=== PATIENT | male | born 1990 | race Caucasian/White ===

== ENCOUNTER 2017-04-27 14:24 | Emergency (ER) | payer SELFPAY ==
[~2017-04-27] VITALS: Ht 182.9 cm; Wt 120.2 kg
[~2017-04-27 14:24] MED LIST: NAPR-682 PO
[2017-04-27 14:39] VITALS: BP 141/65
--- NOTE | 2017-04-27 14:39 | PHYS DOC ---
Past Medical History Past Medical History: No Pertinent History, Other Additional Past Medical Histor: chronic back pain Past Surgical History: No Surgical History Alcohol Use: Occasionally Drug Use: None Adult General Chief Complaint Chief Complaint: EARACHE/EAR PAIN HPI HPI Patient is a 26 year old presents to the emergency department with complaints of feeling like his right ear is draining. He states this began 2 days ago. He states this morning he put a Q-tip in and see her note blood on cotton swab. He has no complaints of pain. He states he has had a chronic cough for 1 year which he attributes to his smoking. He reports no other symptoms Review of Systems Review of Systems Constitutional: Denies fever or chills [] Eyes: Denies change in visual acuity, redness, or eye pain [] HENT: Denies nasal congestion or sore throat, right ear fullness [] Respiratory: Cough Cardiovascular: No additional information not addressed in HPI [] GI: Denies abdominal pain, nausea, vomiting, bloody stools or diarrhea [] : Denies dysuria or hematuria [] Musculoskeletal: Denies back pain or joint pain [] Integument: Denies rash or skin lesions [] Neurologic: Denies headache, focal weakness or sensory changes [] Endocrine: Denies polyuria or polydipsia [] Allergies Allergies Allergies Coded Allergies Type Severity Reaction Last Updated Verified Penicillins Allergy Intermediate 04/16/14 No Physical Exam Physical Exam Constitutional: Well developed, well nourished, no acute distress, non-toxic appearance. [] HENT: Normocephalic, atraumatic, I'd external canal with superficial abrasion, no active bleeding. The bilateral tympanic membranes with effusion, clear fluid no erythema., oropharynx moist, no oral exudates, nose normal. [] Neck: Normal range of motion, no tenderness, supple, no stridor. [] Cardiovascular:Heart rate regular rhythm, no murmur [] Lungs & Thorax: Bilateral breath sounds clear to auscultation [] Abdomen: Bowel sounds normal, soft, no tenderness, no masses, no pulsatile masses. [] Skin: Warm, dry, no erythema, no rash. [] Neurologic: Alert and oriented X 3, normal motor function, normal sensory function, no focal deficits noted. [] Psychologic: Affect normal, judgement normal, mood normal. [] EKG EKG [] Radiology/Procedures Radiology/Procedures [] Course & Med Decision Making Course & Med Decision Making Pertinent Labs and Imaging studies reviewed. (See chart for details) [] Dragon Disclaimer Dragon Disclaimer This electronic medical record was generated, in whole or in part, using a voice recognition dictation system. Departure Departure Impression: Primary Impression: Eustachian tube dysfunction Disposition: HOME, SELF-CARE Condition: STABLE Referrals: NO PCP (PCP) [facility] Patient Instructions: Otalgia, Smoking Cessation Additional Instructions: Counter Sudafed as labeled and is indicated for symptom management. Please do not put objects in her ear. Problem Qualifiers Primary Impression: Eustachian tube dysfunction Laterality: right Qualified Codes: H69.81 - Other specified disorders of eustachian tube, right ear RIKKI AVILEZ [employer] MARKETING DIRECTOR Apr 27, 2017 14:39
== END 2017-04-27 14:45 | disposition home or self-care (01) ==
LOC: ER 14:24
DX: H69.81 Other specified disorders of Eustachian tube, right ear (principal); G89.29 Other chronic pain; F17.200 Nicotine dependence, unspecified, uncomplicated; Z88.0 Allergy status to penicillin
CPT/HCPCS: 99281

== ENCOUNTER 2017-10-04 09:40 | Emergency (ER) | payer SELFPAY ==
[2017-10-04 11:00] LABS: INFLUENZA A PATIENT NEGATIVE (NEGATIVE); INFLUENZA B PATIENT NEGATIVE (NEGATIVE); OBC FLU VALID
[2017-10-04] MEDS: IPRATRPIUM/ALBUTEROL 0.5/2.5MG 3 ML NEBU. NEB ×2 (11:09)
== END 2017-10-04 11:40 | disposition home or self-care (01) ==
LOC: ER 09:40
DX: J40 Bronchitis, not specified as acute or chronic (principal); G89.29 Other chronic pain; F17.200 Nicotine dependence, unspecified, uncomplicated; Z88.0 Allergy status to penicillin
CPT/HCPCS: 71046; 87804; 87804-59; 94640; 99285-25; J7620

== ENCOUNTER 2018-10-29 17:56 | Emergency (ER) | payer SELFPAY ==
[~2018-10-29] VITALS: Ht 182.9 cm; Wt 129.3 kg
[~2018-10-29 17:56] MED LIST changes: +ALBU2.5V8 INH; +PRED20TA PO; +SULF1TAB24 PO
[2018-10-29 19:50] VITALS: BP 153/79
[2018-10-29] MEDS ORDERED: CEPH500T PO (20:29)
[2018-10-29] MEDS ORDERED: IBUP-1007 PO (20:29)
[2018-10-29] MEDS ORDERED: SULF1TAB24 PO (20:29)
--- NOTE | 2018-10-30 02:47 | PHYS DOC ---
Past Medical History Past Medical History: No Pertinent History, Other Additional Past Medical Histor: chronic back pain Past Surgical History: No Surgical History Alcohol Use: Occasionally Drug Use: None Adult General Chief Complaint Chief Complaint: INSECT BITE HPI HPI Patient is an obese 28 yo male who presents with complaint of "insect bite" and worsening skin redness/tenderness on the skin of his RLQ. He reports that Monday night he went to bed without any symptoms, however when he awoke Monday morning he had a dime sized area of erythema with central "darkening" on skin of RLQ. Later in the day he noticed the area of erythema was spreading, outlined the area of erythema with a pen, and later in the day noticed the erythema continued to spread and the pain worsened. He currently rates the pain as 7/10. He denies abdominal pain, chest pain, shortness of breath, urinary symptoms, or GI symptoms. He denies recent travel or sick contacts. Review of Systems Review of Systems Constitutional: Denies fever or chills [] Eyes: Denies change in visual acuity, redness, or eye pain [] HENT: Denies nasal congestion or sore throat [] Respiratory: Denies cough or shortness of breath [] Cardiovascular: Denies chest pain or palpitations. GI: Denies abdominal pain, nausea, vomiting, bloody stools or diarrhea [] : Denies dysuria or hematuria [] Musculoskeletal: Denies back pain or joint pain [] Integument: Admits erythema and tenderness to skin of RLQ. Neurologic: Denies headache, focal weakness or sensory changes [] All other systems were reviewed and found to be within normal limits, except as documented in this note. Allergies Allergies Allergies Coded Allergies Type Severity Reaction Last Updated Verified Penicillins Allergy Intermediate 04/16/14 No Physical Exam Physical Exam Constitutional: Well developed, well nourished, no acute distress, non-toxic appearance. [] HENT: Normocephalic, atraumatic, Neck: Normal range of motion Cardiovascular:Heart rate regular rhythm, no murmur [] Lungs & Thorax: Bilateral breath sounds clear to auscultation [] Abdomen: Soft, no tenderness, no masses, no pulsatile masses. [] Skin: Warm, dry, significant circular area of erythema 4 by 8 RLQ around central dark hair follicle. No fluctuation, weeping, or induration appreciated. No vesicles or dermatomal distribution appreciated. Neurologic: Alert and oriented X 3, normal motor function, normal sensory function, no focal deficits noted. [] Psychologic: Affect normal, judgement normal, mood normal. [] Current Patient Data Vital Signs Vital Signs Date Time Temp Pulse Resp B/P (MAP) Pulse Ox O2 Delivery O2 Flow Rate FiO2 10/29/18 19:50 98.9 70 20 153/79 (103) 98 Room Air 98.9 EKG EKG [] Radiology/Procedures Radiology/Procedures [] Course & Med Decision Making Course & Med Decision Making Patient is 28 yo male who presents with complaint of circular area of erythema and tenderness on RLQ that began Monday morning and has continued to worsen. He denies fevers, chills, GI symptoms. Physical exam remarkable for 8cm circular area of redness around darkened hair follicle. Discussed with patient that this is likely folliculiltis. Discussed with patient the plan to dc home with kephlex and bactrim bacterial coverage and ibuprofen for pain. Patient instructed to return to ED if symptoms worsen. Patient voiced understanding and agreement with plan. Dragon Disclaimer Dragon Disclaimer This electronic medical record was generated, in whole or in part, using a voice recognition dictation system. Departure Departure Impression: Primary Impression: Folliculitis Disposition: HOME, SELF-CARE Condition: STABLE Patient Instructions: Folliculitis Scripts Ibuprofen (IBUPROFEN) 600 Mg Tablet 600 MG PO PRN Q6HRS PRN for INFLAMMATION, #30 TAB Prov: TOVA AVINA MD 10/29/18 Cephalexin (CEPHALEXIN) 500 Mg Tablet 1 TAB PO QID, #40 TAB Prov: TOVA AVINA MD 10/29/18 Sulfamethoxazole/Trimethoprim (BACTRIM DS TABLET) 1 Each Tablet 1 TAB PO BID, #20 TAB Prov: TOVA AVINA MD 10/29/18 TOVA AVINA MD Oct 30, 2018 02:46
== END 2018-10-29 20:34 | disposition home or self-care (01) ==
LOC: ER 17:56
DX: L73.9 Follicular disorder, unspecified (principal); G89.29 Other chronic pain; M54.89 Other dorsalgia; Z88.0 Allergy status to penicillin
CPT/HCPCS: 99283

== ENCOUNTER 2019-12-29 21:54 | Emergency (ER) | payer SELFPAY ==
[~2019-12-29] VITALS: Ht 180.3 cm; Wt 120.0 kg
[~2019-12-29 21:54] MED LIST changes: +CEPH500T PO; +IBUP-1007 PO
[2019-12-29] MEDS ORDERED: ORPH100T PO (23:45)
[2019-12-29] MEDS ORDERED: DEXAMETHASONE 4 MG TABLET PO ONE (23:45)
[2019-12-29] MEDS ORDERED: ORPHENADRINE CITRATE 60 MG/2 ML VIAL. IM ONE (23:45)
[2019-12-29] MEDS ORDERED: PRED20TA PO (23:45)
[2019-12-29] MEDS ORDERED: KETOROLAC 30 MG/ML VIAL. IM ONE (23:45)
[2019-12-29] MEDS ORDERED: LIDO700A21 TP (23:45)
--- NOTE | 2019-12-29 23:45 | PHYS DOC ---
Past Medical History Past Medical History: No Pertinent History Additional Past Medical Histor: chronic back pain Past Surgical History: No Surgical History Smoking Status: Current Every Day Smoker Additional Information: 2 PPD CIGARS Alcohol Use: Occasionally Drug Use: None General Adult EDM: Chief Complaint: LOWER BACK PAIN OR INJURY HPI: HPI: Patient is a 29 year old [f__sex] who presents with [] Review of Systems: Review of Systems: Constitutional: Denies fever or chills. [] Eyes: Denies change in visual acuity. [] HENT: Denies nasal congestion or sore throat. [] Respiratory: Denies cough or shortness of breath. [] Cardiovascular: Denies chest pain or edema. [] GI: Denies abdominal pain, nausea, vomiting, bloody stools or diarrhea. [] : Denies dysuria. [] Musculoskeletal: Denies back pain or joint pain. [] Integument: Denies rash. [] Neurologic: Denies headache, focal weakness or sensory changes. [] Endocrine: Denies polyuria or polydipsia. [] Lymphatic: Denies swollen glands. [] Psychiatric: Denies depression or anxiety. [] Heart Score: Risk Factors: Risk Factors: DM, Current or recent (<one month) smoker, HTN, HLP, family history of CAD, obesity. Risk Scores: Score 0 - 3: 2.5% MACE over next 6 weeks - Discharge Home Score 4 - 6: 20.3% MACE over next 6 weeks - Admit for Clinical Observation Score 7 - 10: 72.7% MACE over next 6 weeks - Early Invasive Strategies Allergies: Allergies: Allergies Coded Allergies Type Severity Reaction Last Updated Verified Penicillins Allergy Intermediate 04/16/14 No Physical Exam: PE: Constitutional: Well developed, well nourished, no acute distress, non-toxic appearance. [] HENT: Normocephalic, atraumatic, bilateral external ears normal, oropharynx moist, no oral exudates, nose normal. [] Eyes: PERRLA, EOMI, conjunctiva normal, no discharge. [] Neck: Normal range of motion, no tenderness, supple, no stridor. [] Cardiovascular:Heart rate regular rhythm, no murmur [] Lungs & Thorax: Bilateral breath sounds clear to auscultation [] Abdomen: Bowel sounds normal, soft, no tenderness, no masses, no pulsatile masses. [] Skin: Warm, dry, no erythema, no rash. [] Back: No tenderness, no CVA tenderness. [] Extremities: No tenderness, no cyanosis, no clubbing, ROM intact, no edema. [] Neurologic: Alert and oriented X 3, normal motor function, normal sensory function, no focal deficits noted. [] Psychologic: Affect normal, judgement normal, mood normal. [] Current Patient Data: Vital Signs: Vital Signs Date Time Temp Pulse Resp B/P (MAP) Pulse Ox O2 Delivery O2 Flow Rate FiO2 12/29/19 22:59 98.7 76 14 143/88 (106) 96 Room Air 98.7 EKG: EKG: [] Radiology/Procedures: Radiology/Procedures: [] Course & Med Decision Making: Course & Med Decision Making Pertinent Labs and Imaging studies reviewed. (See chart for details) [] Dragon Disclaimer: Dragon Disclaimer: This electronic medical record was generated, in whole or in part, using a voice recognition dictation system. Departure Departure Impression: Primary Impression: Low back pain Qualified Codes: M54.42 - Lumbago with sciatica, left side Additional Impression: Sciatica Qualified Codes: M54.32 - Sciatica, left side Disposition: HOME, SELF-CARE Condition: STABLE Referrals: NO PCP (PCP) ELVIS KHAN MD Patient Instructions: Back Pain, Adult, [id number], Sciatica, [id number] Scripts Lidocaine (Lidocaine PATCH ) 1 Each Adh..patch 1 EACH TP DAILY PRN for PAIN, #10 PATCH REMOVE AFTER 12 HOURS Prov: ROSE HENSLEY DO 12/29/19 Prednisone (PREDNISONE) 20 Mg Tablet 2 TAB PO DAILY, #8 TAB Start this prescription tomorrow, Monday12/30/19 Prov: ROSE HENSLEY DO 12/29/19 Orphenadrine Citrate (ORPHENADRINE CITRATE) 100 Mg Tablet.er 1 TAB PO BID PRN for MUSCLE PAIN, #14 TAB Prov: ROSE HENSLEY DO 12/29/19 ROSE HENSLEY DO December 29, 2019 23:45
[2019-12-30 00:03] VITALS: BP 143/87
== END 2019-12-30 00:02 | disposition home or self-care (01) ==
LOC: ER 21:54
DX: G89.29 Other chronic pain (principal); M54.42 Lumbago with sciatica, left side; F17.210 Nicotine dependence, cigarettes, uncomplicated
CPT/HCPCS: 96372; 99284; J1885; J2360; J8540